=== PATIENT | male | born 1945 | race African-American/Black ===

== ENCOUNTER 2016-12-28 13:53 | Emergency (ER) | payer OTHER ==
[~2016-12-28] VITALS: Ht 177.8 cm; Wt 117.7 kg
[2016-12-28] MEDS ORDERED: IRON18TA PO (14:14)
[2016-12-28] MEDS ORDERED: LOSA25TA21 PO (14:14)
[2016-12-28] MEDS ORDERED: ATEN50TA PO (14:14)
[2016-12-28] MEDS ORDERED: AMLO-511 PO (14:14)
[2016-12-28] MEDS ORDERED: METF500T4 PO (14:14)
[2016-12-28] MEDS ORDERED: TERA2 PO (14:14)
[2016-12-28] MEDS ORDERED: ASPI81 PO (14:14)
[2016-12-28] MEDS ORDERED: DOXY50 PO (14:14)
[2016-12-28] MEDS ORDERED: HYDR25TA PO (14:14)
[2016-12-28] MEDS ORDERED: GLIP5 PO (14:14)
[2016-12-28] MEDS ORDERED: ATOR20TA86 PO (14:14)
[2016-12-28] MEDS ORDERED: VITAD400 PO (14:14)
[2016-12-28] MEDS ORDERED: SODIUM CHLORIDE 0.9% 100 ML ONE (14:18)
[2016-12-28] MEDS ORDERED: IOVERSOL 350 MG/ML 100 ML VIAL ONE (14:18)
[2016-12-28] MEDS ORDERED: NITROPRUSSIDE SODIUM 50 MG in DEXTROSE 5%-WATER 248 ML IV PRN ×4 (14:54)
[2016-12-28] MEDS ORDERED: LABETALOL HCL 5 MG/ML 20 ML VIAL IVP PRN ×2 (15:00)
[2016-12-28] MEDS ORDERED: ALTEPLASE PER STROKE PROTOCOL CLINICAL ONE ×2 (15:00)
[2016-12-28 15:07] LABS: BASOPHILS % (AUTO) 0.5 % (0.0-2.0); EOSINOPHILS % (AUTO) 1.7 % (1.0-6.0); HEMATOCRIT 36.5 % (41-53); HEMOGLOBIN 12.1 g/dL (13.5-17.5); LYMPHOCYTES # (AUTO) 0.7 K/uL (1.0-4.8); LYMPHOCYTES % (AUTO) 15.7 % (22.0-44.0); MEAN CORPUSCULAR HEMOGLOBIN 27.3 pg (26.0-34.0); MEAN CORPUSCULAR HGB CONC 33.3 G/dL (31.0-37.0); MEAN CORPUSCULAR VOLUME 82 fL (80-100); MONOCYTES # (AUTO) 0.5 K/uL (0.1-1.0); MONOCYTES % (AUTO) 11.1 % (2.0-9.0); NEUTROPHILS # (AUTO) 3.4 K/uL (1.8-7.7); PLATELET COUNT (AUTO) 174 K/uL (150-450); RED BLOOD CELL COUNT(AUTO) 4.44 MIL/uL (4.50-5.90); RED CELL DISTRIBUTION WIDTH 14.8 % (11.5-14.5); WHITE BLOOD COUNT (AUTO) 4.7 K/uL (4.5-11.0)
[2016-12-28 15:15] LABS: APPEARANCE,URINE CLOUDY (CLEAR); GLUCOSE, URINE (UA) NEGATIVE (NEGATIVE); KETONES,URINE NEGATIVE (NEGATIVE); LEUKOCYTE ESTERASE ,URINE LARGE (NEGATIVE); OCCULT BLOOD,URINE TRACE (NEGATIVE); PROTEIN,URINE NEGATIVE (NEGATIVE)
[2016-12-28] MEDS ORDERED: ALTEPLASE 81 MG in WATER FOR INJECTION,STERILE 81 ML IV ONE (15:15)
[2016-12-28] MEDS ORDERED: ALTEPLASE 9 MG in WATER FOR INJECTION,STERILE 9 ML IV ONE (15:15)
[2016-12-28 15:16] LABS: ADD UA MICROSCOPIC YES
[2016-12-28 15:20] LABS: ANION GAP 11 mmol/L (8-16); CALCIUM, TOTAL 9.3 mg/dL (8.8-10.5); CARBON DIOXIDE 28 mmol/L (22-29); CHLORIDE 100 mmol/L (98-107); CREATININE 1.35 mg/dL (0.60-1.30); GLOMERULAR FILTR. RATE CALC > 60 mL/min (>60); POTASSIUM 3.3 mmol/L (3.5-5.1); SODIUM SERUM 139 mmol/L (136-145); UREA NITROGEN, BLOOD 27 mg/dL (7-18)
[2016-12-28 15:20] LABS: SQUAMOUS EPITHELIAL CELL,UR Few /LPF (None Seen); WBC,URINE 26-50 /HPF (0-5)
[2016-12-28 15:44] LABS: INR 1.1 (0.9-1.1); PROTHROMBIN TIME 11.8 SEC (9.4-11.6)
[2016-12-28 15:49] LABS: ALANINE AMINOTRANSFERASE 22 U/L (12-78); ALBUMIN 3.9 g/dL (3.4-5.0); ASPARTATE AMINOTRANSFERASE 18 U/L (15-37); BILIRUBIN,TOTAL 0.5 mg/dL (0.1-1.0); CREATINE KINASE MB 1.3 ng/mL (0-5); CREATINE KINASE, TOTAL 138 U/L (39-308); TOTAL PROTEIN, SERUM 7.3 g/dL (6.4-8.2)
[2016-12-28 16:30] VITALS: BP 156/88
== END 2016-12-28 17:14 | disposition short-term general hospital (02) ==
LOC: EMS 13:56
DX: I63.9 Cerebral infarction, unspecified (principal); I48.91 Unspecified atrial fibrillation; I10 Essential (primary) hypertension; E11.9 Type 2 diabetes mellitus without complications; E78.00 Pure hypercholesterolemia, unspecified
CPT/HCPCS: 37195; 51702; 70496; 82962; 87086; 93005; 99291; 99292; J2997; J3490; J7050; J7060